=== PATIENT | female | born 1980 | race Two or more races ===

== ENCOUNTER 2021-06-25 20:59 | Emergency (ER) | payer SELFPAY ==
[~2021-06-25] VITALS: Ht 152.4 cm; Wt 73.0 kg
[2021-06-25 22:15] LABS: Basophils # (auto) 0 10 ^3/uL (0-0.2); Eosinophils # (auto) 0.1 10 ^3/uL (0-0.8); Eosinophils % (auto) 0.6 % (0.0-7.0); Hematocrit 19.7 % (36.0-46.0); Monocytes # (auto) 0.4 10 ^3/uL (0-1.3); Red Cell Distribution Width 13.1 % (11.8-14.3); White Blood Cell 8.7 10^3/uL (4.4-10.8)
[2021-06-25 22:17] LABS: Basophils % (auto) 0.3 % (0.0-2.0); Lymphocytes % (auto) 34.5 % (10.0-50.0); Mean Corpuscular Hemoglobin 28.1 pg (28.0-32.0); Mean Corpuscular Hgb Conc. 32.8 g/dL (32.0-36.0); Mean Corpuscular Volume 85.8 fL (80.0-100.0); Monocytes % (auto) 5.2 % (0.0-12.0); Neutrophils # (auto) 5.2 10 ^3/uL (1.6-8.6); Neutrophils % (auto) 59.4 % (37.0-80.0); Nucleated Red Blood Cells % 0.1 %
[2021-06-25 22:24] LABS: Hemoglobin 6.5 g/dL (12.2-16.2)
[2021-06-25 22:35] LABS: Albumin 3.1 g/dL (3.4-5.0); Calcium 8.1 mg/dL (8.5-10.1); Potassium 3.8 mmol/L (3.5-5.1)
[2021-06-25 22:39] LABS: Bilirubin, Total 0.1 mg/dL (0.2-1.0); Total Protein 6.7 g/dL (6.4-8.2)
[2021-06-25 23:38] LABS: INR 0.94 (0.9-1.15)
[2021-06-26 02:10] VITALS: BP 117/70
[2021-06-26 02:30] VITALS: BP 114/68
[2021-06-26 04:17] VITALS: BP 122/74
[2021-06-26 05:30] VITALS: BP 121/73
== END 2021-06-26 05:44 | disposition home or self-care (01) ==
LOC: ER 21:02
DX: D64.9 Anemia, unspecified (principal); N93.9 Abnormal uterine and vaginal bleeding, unspecified
CPT/HCPCS: 36415; 36430; 80053; 85025; 85610; 86850; 86900; 86901; 86920; 99285; P9016